=== PATIENT | female | born 1950 | race Caucasian/White ===

== ENCOUNTER 2024-09-29 17:05 | Emergency (ER) | payer MEDICARE, OTHER ==
[2024-09-29] MEDS ORDERED: NORCO 10-325 MG ONE (17:43)
[2024-09-29] MEDS: NORCO 10-325 MG PO ONE (17:43)
[2024-09-29 18:04] VITALS: RESP 18; TEMP 98.3
--- NOTE | 2024-09-29 18:19 | XRAY ---
Indication: Pain following fall. Comparison: None 3 view left wrist demonstrates osteopenia and minimal 1st metacarpal multangular scaphoid degenerative changes. No other bony, articular, or soft tissue abnormalities.
[2024-09-29 18:32] VITALS: BP 133/93; PULSE 84
[2024-09-29 18:35] VITALS: O2SAT 98
--- NOTE | 2024-09-29 18:35 | ERPHSYRPT ---
- History of Present Illness Time Seen by Provider: 09/29/24 18:30 Source: patient, family Exam Limitations: no limitations Patient Subjective Stated Complaint: Pt. states, "My legs just gave out and I hit my wrist on the side of the bed, now it hurts".. Triage Nursing Assessment: Alert, pleasantly confused, resp even unlabored, guarding left wrist. Physician History: Pt. states, "My legs just gave out and I hit my left wrist on the side of the bed, now it hurts".. Occurred: just prior to arrival Method of Injury: fell Quality: constant Severity of Pain-Max: moderate Severity of Pain-Current: moderate Extremities Pain Location: wrist: left Modifying Factors: Improves With: cold therapy Associated Symptoms: none Body Map: 1 - area of pain Hx Tetanus, Diphtheria Vaccination/Date Given: No Hx Influenza Vaccination/Date Given: Yes Hx Pneumococcal Vaccination/Date Given: Yes Immunizations Up to Date: Yes Travel Risk - International Travel Have you traveled outside of the country in past 3 weeks: No - Emerging Infectious Disease Are you exhibiting symptoms associated with any current EIDs: No - Review of Systems Constitutional: No Symptoms Eyes: No Symptoms Ears, Nose, & Throat: No Symptoms Respiratory: No Symptoms Cardiac: No Symptoms Abdominal/Gastrointestinal: No Symptoms Genitourinary Symptoms: No Symptoms Musculoskeletal: Fall, Joint Pain, Joint Swelling (left wrist) Skin: No Symptoms Neurological: No Symptoms - Past Medical History Pertinent Past Medical History: Yes Other Medical History: Dementia, Insomnia, Vitamin D Insuff, Mood Disorder, Eugenie r Depressive Disorder, Anxiety Disorder, Chronic Pain Syndrome, GERD, ESBL Disorder, Chronic UTI's, HTN, TIA, Anemia, Delusions, Bipolar, Hyperlipidemia - Past Surgical History Past Surgical History: No - Social History Smoking Status: Never smoker Exposure to second hand smoke: No Drug Use: none - Social Determinants of Health Will the patient participate in the screening: Yes Do you worry about a steady place to live?: No Do you have any problems with any of the following?: No known problems In the past 12 months,have you had to go without utilities?: No Transportation Issues: No Has anyone in your support network made you feel unsafe?: No Have you or anyone in your house had to go without enough: No - Nursing Vital Signs Nursing Vital Signs: Initial Vital Signs Temperature 98.3 F 09/29/24 17:05 Pulse Rate 86 09/29/24 17:05 Respiratory Rate 18 09/29/24 17:05 Blood Pressure 113/58 09/29/24 17:05 O2 Sat by Pulse Oximetry 98 09/29/24 17:05 Pain Scale Pain Intensity 8 - Physical Exam General Appearance: no apparent distress Eyes, Ears, Nose, Throat Exam: normal ENT inspection Neck Exam: normal inspection Cardiovascular/Respiratory Exam: chest non-tender Abdominal Exam: non-tender Back Exam: normal inspection Shoulder Exam: normal inspection Elbow/Forearm Exam: normal inspection Wrist Exam: deformity, limited ROM (left wrist) Hand Exam: normal inspection SpO2: 98 Procedures - Splinting Time of Procedure: 18:41 Location of Splint: Left, Wrist Type of Splint: Other (Dorsal Volar orthoglass splint) Splint Applied By: ED Nurse Pre-Proc Neuro Vasc Exam: normal Post-Proc Neuro Vasc Exam: neurovascular intact - Course Nursing assessment & vital signs reviewed: Yes - Radiology Exams Wrist X-ray Interpretation: Interpreted by me, Reviewed by me, Non-displaced Fracture Ordered Tests: Active Orders 24 hr Category Date Time Status Splint STAT Care 09/29/24 18:35 Active WRIST (MIN 3 VIEWS) Stat Exams 09/29/24 17:40 Completed Medication Summary Discontinued Medications Generic Name Dose Route Start Last Admin Trade Name Estefani PRN Reason Stop Dose Admin Hydrocodone Bitart/Acetaminophen 1 tablet 09/29/24 17:41 09/29/24 17:43 Hydrocodone/Acetamin 10-325 Mg Tablet PO 09/29/24 17:42 1 tablet ONCE ONE Administration Hydrocodone Bitart/Acetaminophen Confirm 09/29/24 17:43 Hydrocodone/Acetamin 10-325 Mg Tablet Administered 09/29/24 17:44 Dose 1 tablet .ROUTE .STK-MED ONE - Progress Progress: improved, pain not gone completely Counseled pt/family regarding: diagnosis, need for follow-up, rad results Medical Desision Making - Diagnostic Testing Diagnostic test were ordered, analyzed, and reviewed by me: Yes Radiological Interpretation: Interpreted by me, Reviewed by me - Departure Departure Disposition: Home Clinical Impression: Radius distal fracture Qualifiers: Encounter type: initial encounter Fracture type: closed Fracture morphology: unspecified fracture morphology Laterality: left Qualified Code(s): S52.502A - Unspecified fracture of the lower end of left radius, initial encounter for closed fracture Condition: Stable Critical Care Time: No Referrals: HAWA CUELLAR OF [Primary Care Provider] - [facility]Orth[facility] M-F [id number] Instructions: Forearm and Wrist Fractures ED Additional Instructions: Discharge/Care Plan FAROOQ KEITH was seen on 09/29/24 in the Emergency Room. The patient was counseled regarding Diagnosis,Lab results, Imaging studies, need for follow up and when to return to the Emergency Room. Prescriptions given: Discharge Note I have spoken with the patient and/or caregivers. I have explained the patient's condition, diagnosis and treatment plan based on the information available to me at this time. I have answered the patient's and/or caregiver's questions and addressed any concerns. The patient and/or caregivers have as good understanding of the patient's diagnosis, condition and treatment plan as can be expected at this point. The vital signs have been stable. The patient's condition is stable and appropriate for discharge from the emergency department. The patient will pursue further outpatient evaluation with the primary care physician or other designated or consulting physician as outlined in the discharge instructions. The patient and/or caregivers are agreeable to this plan of care and follow-up instructions have been explained in detail. The patient and/or caregivers have received these instruction. The patient/and or caregivers are aware that any significant change in condition or worsening of symptoms should prompt an immediate return to this or the closest emergency department or call 911. FAROOQ KEITH was seen on 09/29/24 n the Emergency Room. At that time you were treated for an emergent condition, during your visit Laboratory, Radiology and/or other procedures may have been ordered. It is very important that you follow-up with your Primary Care Physician THE TASHA within the next 24-48 hours to review your Emergency Room visit and the final results of testing that was ordered. Some test results such as Urine Cultures, Blood Cultures, and other cultures if ordered will not be finalized for 24-48 hours. If you do not have a Primary Care Provider please call the medical records department at [phone] ext [phone] to obtain a copy of your results or you may sign into our patient portal to obtain these results by visiting us @ [email or web address] and completing the following steps: 1. Click on the Patient Portal link 2. Click the Patient Self Enrollment Link to complete the enrollment form and entering your 3. Once the enrollment form is completed you will receive an email with a temporary ID and password at the email address you provided. 4. Next choose a user name and password. Your user name must be at least 4 characters long and your password must be at least 4 characters long. 5. Choose a security question from the list and provide your answer to the question. If you already have signed into the Health Portal you may access your Health Care Information 28/04 by the following steps: 1. Login to our website @ [email or web address] 2. Enter your original user name and password. FAQS The [facility] Health Portal is an online tool that contains your Lab Results, Radiology Reports, Visit History, Discharge Instructions and Health Summary Lab and Radiology Results will not be available for 72 hours on the portal. The Portal is a secure site, passwords are encryted and URLs are re-written so they cannot be copied and pasted. You and authorized family members are the only ones who can access your Portal. Also there is a timeout feature that protects your information if you leave the Portal page open. If you have technical difficulty please use the Contact Us link on the page this will allow you to submit any questions you have regarding the Portal or you may contact the Medical Record Department at [phone] ext [phone]. Prescriptions: Naproxen 375 mg [Naprosyn 375 mg] 375 mg PO Q8H #30 tablet
== END 2024-09-29 18:55 | disposition home or self-care (01) ==
LOC: ED 17:05
DX: S52.502A Unspecified fracture of the lower end of left radius, initial encounter for closed fracture (principal); M25.532 Pain in left wrist; W22.8XXA Striking against or struck by other objects, initial encounter
CPT/HCPCS: 29125; 73110; 99282; 99283; A4570; A9270-GY

== ENCOUNTER 2025-04-29 09:41 | Emergency (ER) | payer MEDICARE ==
[2025-04-29 10:02] VITALS: TEMP 98
--- NOTE | 2025-04-29 10:04 | ERPHSYRPT ---
- History of Present Illness Time Seen by Provider: 04/29/25 09:45 Source: patient, EMS, old records Exam Limitations: no limitations Patient Subjective Stated Complaint: Pt complains of pain Triage Nursing Assessment: pt presents via ambulance complaining of left hip pain 10/10 and left arm pain 6/10. She is alert and oriented and reports that she fell at her facility last evening. Left leg is slightly shortened. Pedal pulse palpable bilaterally. Physician History: This is a 74-year-old white female patient brought to the emergency department by the paramedics who is a resident at [facility] and whose primary care provider is Dr. Corona with the complaint of falling backwards and hitting her head. In addition she has pain in her left hip left shoulder and left wrist. She was bending forward per her report and when she stood up she was dizzy and fell backwards. She was found on the floor this morning. The event occurred last evening. Occurred: yesterday Reason for Fall: lightheaded (Patient states that she was bending forward and then stood up and became lightheaded and fell backwards) Injuries/Pain Location: head, neck, upper extremity (Left shoulder and left wrist), lower extremity (Left hip) Loss of Consciousness: no loss of consciousness Quality: aching Severity of Pain-Max: moderate Severity of Pain-Current: moderate Modifying Factors: Improves With: movement Associated Symptoms (Fall): denies symptoms, headache, lightheadedness (Now resolved but it occurred last evening), No chest pain, No extremity injury (Left wrist, left shoulder, left hip), No shortness of breath, No vision changes Allergies/Adverse Reactions: levofloxacin Allergy (Verified 04/29/25 10:41) unknown reaction Home Medications: Acetaminophen [8 Hour Acetaminophen] 650 mg PO DAILY 04/29/25 [History] Amlodipine Besylate 5 mg PO DAILY 04/29/25 [History] Aspirin [Low Dose Aspirin EC] 81 mg PO DAILY 04/29/25 [History] Atorvastatin Calcium 40 mg PO DAILY 04/29/25 [History] Cholecalciferol (Vitamin D3) [Vitamin D] 50,000 unit PO DAILY 04/29/25 [History] Divalproex Sodium 500 mg PO BID 04/29/25 [History] Donepezil HCl [Aricept] 5 mg PO DAILY 04/29/25 [History] Ferrous Sulfate [Ferosul] 325 mg PO DAILY 04/29/25 [History] Hydrocodone/Acetaminophen [Hydrocodone-Acetamin 5-325 mg] 1 each PO BID 04/29/25 [History] Hydrocortisone/Aloe Vera [Hydrocortisone Plus 1% Cream] 1 each TOP Q4H PRN PRN 04/29/25 [History] Loperamide HCl [Loperamide] 2 mg PO Q4H PRN PRN 04/29/25 [History] Melatonin 10 mg PO DAILY 04/29/25 [History] Menthol [Biofreeze] 85 gm TP Q12H PRN PRN 04/29/25 [History] PANTOPRAZOLE 40 mg Tablet [Protonix 40MG Tablet] 40 mg PO DAILY 04/29/25 [History] Saccharomyces Boulardii [Resistance Formula Probiotic] 1 each PO DAILY 04/29/25 [History] Sertraline HCl 100 mg PO DAILY 04/29/25 [History] Sulfamethoxazole/Trimethoprim [Bactrim Ds Tablet] 0.5 tablet PO DAILY 04/29/25 [History] Trazodone HCl 75 mg PO DAILY 04/29/25 [History] risperiDONE [Risperidone] 1 mg PO BID 04/29/25 [History] Hx Tetanus, Diphtheria Vaccination/Date Given: No Hx Influenza Vaccination/Date Given: Yes Hx Pneumococcal Vaccination/Date Given: Yes Immunizations Up to Date: Yes Travel Risk - International Travel Have you traveled outside of the country in past 3 weeks: No - Emerging Infectious Disease Are you exhibiting symptoms associated with any current EIDs: No - Review of Systems Constitutional: No Symptoms Eyes: No Symptoms Ears, Nose, & Throat: No Symptoms Respiratory: No Symptoms Cardiac: No Symptoms Abdominal/Gastrointestinal: No Symptoms Genitourinary Symptoms: No Symptoms Musculoskeletal: Neck Pain, Fall, Injury, Joint Pain (Left shoulder, left hip and left wrist pain) Skin: No Symptoms Neurological: Headache Psychological: No Symptoms Endocrine: No Symptoms Hematologic/Lymphatic: No Symptoms Immunological/Allergic: No Symptoms All Other Systems: Reviewed and Negative - Past Medical History Pertinent Past Medical History: Yes Other Medical History: Dementia, Insomnia, Vitamin D Insuff, Mood Disorder, Major Depressive Disorder, Anxiety Disorder, Chronic Pain Syndrome, GERD, ESBL Disorder, Chronic UTI's, HTN, TIA, Anemia, Delusions, Bipolar, Hyperlipidemia - Past Surgical History Past Surgical History: No - Social History Smoking Status: Never smoker Exposure to second hand smoke: No Drug Use: none - Social Determinants of Health Will the patient participate in the screening: Yes Do you worry about a steady place to live?: No Do you have any problems with any of the following?: No known problems In the past 12 months,have you had to go without utilities?: No Transportation Issues: Yes Has anyone in your support network made you feel unsafe?: No Have you or anyone in your house had to go w/o enough food: No - Nursing Vital Signs Nursing Vital Signs: Initial Vital Signs Temperature 98.0 F 04/29/25 09:41 Pulse Rate 85 04/29/25 09:41 Respiratory Rate 16 04/29/25 09:41 Blood Pressure 99/59 04/29/25 09:41 O2 Sat by Pulse Oximetry 92 L 04/29/25 09:41 Pain Scale Pain Intensity 10 - Sheree Coma Score Best Eye Response ([place]): (4) open spontaneously Best Verbal Response (Sheree): (5) oriented Best Motor Response (Sheree): (6) obeys commands Sheree Total: 15 - Physical Exam General Appearance: no apparent distress, alert, anxiety Head Injury: no evidence of injury Eye Exam: PERRL/EOMI, eyes nml inspection ENT Exam: airway nml, nml ext.inspection Neck Exam: supple, trachea midline, full range of motion, normal alignment, normal inspection, paraspinous muscle tender (Mild bilateral) Respiratory/Chest Exam: normal breath sounds, No chest tenderness, No respiratory distress, No ecchymosis, No crepitus Cardiovascular Exam: normal heart sounds, regular rate/rhythm Gastrointestinal Exam: soft, normal bowel sounds, No tenderness Rectal Exam: not done Back Exam: normal inspection, normal range of motion, No CVA tenderness, No vertebral tenderness Extremity Exam: normal inspection, normal range of motion, capillary refill <3 sec, pelvis stable, hip tenderness (Left side), tenderness (Left hip and left wrist to palpation), No deformities Neurologic Exam: alert, oriented x 3, cooperative, creeler II-XII nml as tested, sensation nml Skin Exam: normal color, warm, dry SpO2 Interpretation: normal O2 Delivery: Room Air - Course Nursing assessment & vital signs reviewed: Yes Ordered Tests: Active Orders 24 hr Category Date Time Status Catheter-[place]wood STAT Care 04/29/25 10:04 Active EKG-ER Only STAT Care 04/29/25 10:04 Active IV Insertion STAT Care 04/29/25 10:04 Active CERVICAL SPINE WO CONTRAST [CT] Stat Exams 04/29/25 10:05 Completed CHEST 1 VIEW (PORTABLE) Stat Exams 04/29/25 11:21 Completed FEMUR Stat Exams 04/29/25 10:06 Completed HEAD WITHOUT CONTRAST [CT] Stat Exams 04/29/25 10:05 Completed HIP UNI (2V) INCL PEL IF DONE Stat Exams 04/29/25 10:06 Completed SHOULDER Stat Exams 04/29/25 10:36 Completed WRIST (MIN 3 VIEWS) Stat Exams 04/29/25 10:36 Completed CBC W DIFF Stat Lab 04/29/25 10:30 Completed CMP Stat Lab 04/29/25 10:30 Completed CULTURE,URINE Stat Lab 04/29/25 10:23 Received UA W/RFX UR CULTURE Stat Lab 04/29/25 10:23 Completed Lab/Rad Data: Laboratory Result Diagrams 04/29/25 10:30 04/29/25 10:30 Laboratory Results 04/29/25 04/29/25 04/29/25 Range/Units 10:30 10:30 10:23 WBC 11.7 H (3.98-10.04) x10^3/uL RBC 3.75 L (3.93-5.22) x10^6/uL Hgb 11.8 (11.2-15.7) g/dL Hct 35.3 (34.1-44.9) % MCV 94.1 (79.4-94.8) fL MCH 31.5 (25.6-32.2) pg MCHC 33.4 (32.2-35.5) g/dL RDW 13.6 (11.7-14.4) % Plt Count 246 (182-369) x10^3/uL MPV 10.0 (9.4-12.3) fL Gran % 81.4 H (34.0-71.1) % Immature Gran % (Auto) 0.3 (0.001-0.429) % Nucleat RBC Rel Count 0.0 (0.00-0.2) % Eos # (Auto) 0.01 L (0.04-0.36) x10^3/uL Immature Gran # (Auto) 0.04 H (0.001-0.031) x10^3u/L Absolute Lymphs (auto) 1.04 L (1.18-3.74) x10^3/uL Absolute Monos (auto) 1.06 H (0.24-0.86) x10^3/uL Absolute Nucleated RBC 0.00 (0.00-0.012) x10^3u/L Lymphocytes % 8.9 L (19.3-51.7) % Monocytes % 9.0 (4.7-12.5) % Eosinophils % 0.1 L (0.7-5.8) % Basophils % 0.3 (0.1-1.2) % Absolute Granulocytes 9.55 H (1.56-6.13) x10^3/uL Basophils # 0.03 (0.01-0.08) x10^3/uL Sodium 135 (135-145) mmol/L Potassium 3.7 (3.5-5.1) mmol/L Chloride 104 (98-107) mmol/L Carbon Dioxide 23 (22-30) mmol/L Anion Gap 11.8 (5-15) MEQ/L BUN 28 H (7-17) mg/dL Creatinine 0.92 (0.52-1.04) mg/dL Estimated GFR 65.3 ML/MIN Glucose 142 H (74-106) mg/dL Calcium 8.9 (8.4-10.2) mg/dL Total Bilirubin 0.50 (0.2-1.3) mg/dL AST 225 H (14-36) U/L ALT 64 H (0-35) U/L Alkaline Phosphatase 60 (38-126) U/L Serum Total Protein 6.1 L (6.3-8.2) g/dL Albumin 3.8 (3.5-5.0) g/dL Urine Color Yellow (Yellow) Urine Appearance Turbid A (Clear) Urine pH 6.0 (4.6-8.0) Ur Specific [place] 1.020 (1.005-1.030) Urine Protein 300 A (Negative) Urine Glucose (UA) Negative (Negative) mg/dL Urine Ketones Trace A (Negative) Urine Blood Large A (Negative) Urine Nitrite Positive A (Negative) Urine Bilirubin Negative (Negative) Urine Urobilinogen 1.0 A (0.2) mg/dL Ur Leukocyte Esterase Large A (Negative) U Hyaline Cast (Auto) NONE SEEN (0-2) /LPF Urine Microscopic RBC >100 A (0-5) /HPF Urine Microscopic WBC >100 A (0-5) /HPF Ur Epithelial Cells Rare (None Seen) /HPF Urine Bacteria Many A (None Seen) /HPF Urine Culture Reflexed ORDERED SEPARATELY (NO) - Progress Progress: pain not gone completely, re-examined Progress Note: 04/29/25 10:43 My medical decision making and the assignment of at least moderate complexity of this patient's medical issue today is based on review of the patient's past medical history, review of the patient's medication list, reviewed patient drug allergy list, history present illness and physical findings on examination. The workup in this patient includes placement of intravenous line, placement of a Lockwood catheter (temporary) to obtain a urinalysis, twelve-lead EKG, CT scan of the head and cervical spine without contrast, left shoulder x-ray, left wrist x- ray and left hip x-ray. Will also order a CBC and a CMP. Differential diagnosis includes but is not limited to acute intracranial abnormality, skull fracture, cervical spine fracture, cervical spine subluxation, contusion left hip, fracture left hip, dislocation left hip, left shoulder contusion, left shoulder fracture, left shoulder dislocation, left wrist fracture, left wrist dislocation 04/29/25 12:17 I interpreted the patient's laboratory data results. Based on laboratory data results, there are no acute, emergent medical issues. The following radiographic studies were all interpreted by the radiologist and I reviewed the impressions: Left femur x-ray shows mild hip degenerative changes. Mild left knee degenerative changes. No acute bony, articular or soft tissue abnormalities. Left hip x-ray shows mild to moderate degenerative spondylosis of the lower lumbar spine. There is degenerative changes in both hips. No acute abnormalities. Left shoulder x-ray shows multi level cervical degenerative spondylosis. There is a high riding humeral head which may suggest rotator cuff tear. Left wrist shows no acute abnormalities CT scan of the head shows stable nonacute senile brain with remote lacunar infarct right basal ganglia and remote infarct right frontal lobe. CT scan of the cervical spine shows no acute fracture or subluxation. There are degenerative changes present. Counseled pt/family regarding: lab results, diagnosis, rad results Medical Desision Making - Independent Historian Additional History obtained from: Dietary Aide Cook/EMT - External Record(s) Reviewed Records reviewed as a part of evaluation & management: jail - Diagnostic Testing Diagnostic test were ordered, analyzed, and reviewed by me: Yes Radiological Interpretation: Reviewed by me, Teleradiologist Report - Risk of complications Low Risk: Low risk of morbidity from additional dx testing or treatment - Departure Departure Disposition: Home Clinical Impression: Fall with no significant injury Condition: Stable Critical Care Time: No Referrals: EULALIO CORONA MD [Primary Care Provider, [facility]] - Follow up/PCP as directed Additional Instructions: Ice pack to tender areas 3 times a day for the next 3 days. If there are no contraindications, may use Tylenol and ibuprofen for pain control. Call your primary care provider today, 04/29/2025, to make arranges for follow-up appointment for further evaluation management.
[2025-04-29 10:37] LABS: BASOPHIL % 0.3 % (0.1-1.2); Basophil (Absolute #) 0.03 x10^3/uL (0.01-0.08); Eosinophil (Absolute #) 0.01 x10^3/uL (0.04-0.36); Hematocrit 35.3 % (34.1-44.9); Hemoglobin 11.8 g/dL (11.2-15.7); IMMATURE GRAN # 0.04 x10^3u/L (0.001-0.031); IMMATURE GRAN % 0.3 % (0.001-0.429); Lymphocyte (Absolute #) 1.04 x10^3/uL (1.18-3.74); Mean Corpuscular Hemoglobin 31.5 pg (25.6-32.2); Mean Corpuscular Hgb Concent. 33.4 g/dL (32.2-35.5); Monocyte (Absolute #) 1.06 x10^3/uL (0.24-0.86); NUCLEATED RBC # 0.00 x10^3u/L (0.00-0.012); NUCLEATED RBC % 0.0 % (0.00-0.2); Platelet Count 246 x10^3/uL (182-369); Red Blood Count 3.75 x10^6/uL (3.93-5.22); White Blood Count 11.7 x10^3/uL (3.98-10.04)
[2025-04-29 10:38] LABS: Glucose, Urine Negative (Negative); Protein,Urine Dip 300 (Negative); RBC >100 /HPF (0-5); WBC >100 /HPF (0-5)
[2025-04-29 10:52] LABS: Calcium 8.9 mg/dL (8.4-10.2); Carbon Dioxide 23.0 mmol/L (22-30); Creatinine 1 0.92 mg/dL (0.52-1.04); EST GLOMERULAR FILTRATION RATE 65.3 ML/MIN; Glucose 142.0 mg/dL (74-106); Potassium 3.7 mmol/L (3.5-5.1); SGOT/AST 225.0 U/L (14-36); SGPT/ALT 64.0 U/L (0-35); Total Protein 6.1 g/dL (6.3-8.2)
--- NOTE | 2025-04-29 11:25 | XRAY ---
Indication: Fall. Comparison: None 3 view left shoulder demonstrates osteopenia, moderate AC degenerative arthropathy, minimal multilevel cervicothoracic degenerative spondylosis, minimal levoscoliosis, and minimal left carotid calcifications. High-riding humeral head commonly seen with rotator cuff tears. No other abnormalities.
--- NOTE | 2025-04-29 11:27 | XRAY ---
Indication: Fall. Comparison: September 29, 2024 3 view left wrist again demonstrates osteopenia, radiocarpal degenerative joint space narrowing, faint ulnar carpal degenerative chondrocalcinosis, and mild 1st metacarpal multangular scaphoid degenerative changes with tiny heterotopic ossification. No acute abnormalities.
--- NOTE | 2025-04-29 11:31 | XRAY ---
Indication: Fall. Comparison: None 2 view left femur demonstrates osteopenia, mild hip degenerative arthropathy, CT proven tiny calcified uterine fibroids, mild left knee degenerative chondrocalcinosis, and minimal scattered vascular calcifications. No acute bony, articular, or soft tissue abnormalities.
--- NOTE | 2025-04-29 11:31 | XRAY ---
Indication: Fall. Comparison: None AP pelvis and 2 view left hip demonstrates osteopenia, mild degenerative changes both hips , mild/moderate lower lumbar degenerative spondylosis, CT proven tiny calcified uterine fibroids, right mid abdomen suture material, and mild scattered vascular calcifications. No acute abnormalities.
--- NOTE | 2025-04-29 11:47 | XRAY ---
Indication: Fall. Preop exam. Comparison: None Portable chest hyperinflated with minimal biapical calcified pleural plaquing. No focal infiltrate, consolidation, or large effusion. Heart not enlarged. Bony thorax intact with osteopenia, mild degenerative changes, and minimal dextroscoliosis centered at thoracolumbar junction. Impression: Nonacute chest with chronic features.
--- NOTE | 2025-04-29 12:09 | XRAY ---
Indication: Fall injury. Multiple contiguous axial images obtained through the head without contrast. Comparison: January 24, 2025 Again age-appropriate global atrophy, minimal periventricular degenerative micro ischemia bilaterally, remote lacunar infarct right basal ganglia, and small focus remote infarct right frontal lobe. No acute intracranial hemorrhage, hydrocephalus, or mass effect. Fourth ventricle is midline . Warner-white matter differentiation preserved. Bony calvarium intact. Visualized paranasal sinuses and mastoid air cells are clear. Impression: Stable nonacute senile brain with remote lacunar infarct right basal ganglia and remote infarct right frontal lobe.
--- NOTE | 2025-04-29 12:13 | XRAY ---
Indication: Fall injury. Multiple contiguous axial images obtained through the cervical spine. Sagittal and coronal reformatted images obtained. Comparison: None Osseous structures demineralized. Axial images negative for acute fracture, suspicious bony lesions, or spinal canal stenosis. Minimal/mild C3-C7 degenerative endplate spurring greatest at C5-C6. Also mild atlantoaxial degenerative arthropathy and mild multilevel degenerative facet hypertrophy. Sagittal and coronal reformatted images demonstrates lordotic straightening, positional versus paraspinal spasm. C2-C7 disc space narrowing greatest at C5-C6. No acute compression fracture, subluxation, or jumped facet. Normal appearing craniocervical junction. Visualized noncontrasted soft tissues demonstrates mild bilateral carotid calcifications. Lung apices clear with incidental pulmonary emphysema. Impression: 1. Cervical lordotic straightening, positional versus paraspinal spasm. 2. Negative acute fracture/subluxation. 3. Chronic findings including osteopenia, multilevel degenerative spondylosis, carotid calcifications, and pulmonary emphysema.
[2025-04-29 12:32] VITALS: BP 109/63; PULSE 93; RESP 19; O2SAT 97
== END 2025-04-29 13:02 | disposition home or self-care (01) ==
LOC: ED 09:41
DX: Z04.3 Encounter for examination and observation following other accident (principal); N39.0 Urinary tract infection, site not specified; M25.552 Pain in left hip; M25.512 Pain in left shoulder; M25.532 Pain in left wrist; R42 Dizziness and giddiness; I10 Essential (primary) hypertension; Z79.891 Long term (current) use of opiate analgesic; Z79.899 Other long term (current) drug therapy; Z59.82 Transportation insecurity